=== PATIENT | male | born 1950 | race Caucasian/White ===

== ENCOUNTER → 2018-10-28 | Outpatient (CLI) | payer MEDICARE | END | disposition home or self-care (01) | LOC: LABPAT 13:27 | PROVIDERS: ATTEND Orthopaedic Surgery | DX: Z01.812 Encounter for preprocedural laboratory examination (principal) | CPT/HCPCS: 87070 ==

== ENCOUNTER → 2018-11-12 | Outpatient (CLI) | payer MEDICARE ==
[2018-11-12 08:21] LABS: HCT 41.6 % (39.0-53.0); HGB 13.4 gm/dL (13.0-17.5); MCH 31.4 pg (25.0-35.0); MCHC 32.1 g/dL (31.0-37.0); MCV 97.7 fL (80.0-100.0); Mean Platelet Volume 8.9; Platelet Count 162 k/uL (150-450); RBC 4.26 m/uL (4.30-5.90); RDW 13.4 % (11.5-15.5); WBC 5.1 k/uL (3.8-10.6)
[2018-11-12 08:23] LABS: Partial Thromboplastin Time 23.5 sec (22.0-30.0); Prothrombin Time 10.8 sec (9.0-12.0)
[2018-11-12 08:24] LABS: Appearance,Urine Clear (Clear); Bilirubin,Urine Negative (Negative); Blood,Urine Negative (Negative); Color,Urine Yellow; Glucose,Urine (UA) Negative (Negative); Ketones,Urine Negative (Negative); Leukocyte Esterase,Urine Negative (Negative); Nitrite,Urine Negative (Negative); PH, Urine 5.5 (5.0-8.0); Protein,Urine Negative (Negative); Specific Gravity,Urine 1.015 (1.001-1.035); Urobilinogen,Urine <2.0 mg/dL (<2.0)
[2018-11-12 08:25] LABS: ALT 42 U/L (21-72); AST 36 U/L (17-59); Albumin 4.3 g/dL (3.5-5.0); Alkaline Phosphatase 44 U/L (38-126); Anion Gap 7 mmol/L; Blood Urea Nitrogen 20 mg/dL (9-20); Calcium 9.6 mg/dL (8.4-10.2); Carbon Dioxide 29 mmol/L (22-30); Chloride 104 mmol/L (98-107); Glucose 106 mg/dL (74-99); Sodium 140 mmol/L (137-145); Total Bilirubin 0.8 mg/dL (0.2-1.3); Total Protein 7.1 g/dL (6.3-8.2)
== END | disposition home or self-care (01) ==
LOC: LABPAT 07:35
PROVIDERS: ATTEND Orthopaedic Surgery
DX: Z01.818 Encounter for other preprocedural examination (principal); Z01.812 Encounter for preprocedural laboratory examination; Z79.01 Long term (current) use of anticoagulants
CPT/HCPCS: 36415; 80053; 81003; 85027; 85610; 85730; 93005

== ENCOUNTER 2018-11-26 08:00 | Inpatient (IN) | payer MEDICARE ==
[~2018-11-26 08:00] MED LIST: ACETAMINOPHEN TAB 500 MG TAB PO ONE; LIDOCAINE 1% 20 ML VIAL (10MG/ML) FOR IV START INTRADERMA PRN; MELOXICAM 7.5 MG TAB PO ONE; MIDAZOLAM (PF) 2 MG/2 ML VIAL IV PRN; TRANEXAMIC ACID 1,000 MG in SODIUM CHLORIDE 0.9% 50 ML IVPB ONE; ceFAZolin IN SWFI 2 GM/20 ML SYRINGE IVP ONE; fentaNYL (PF) 50 MCG/ML 2 ML AMP IV PRN; fentaNYL (PF) 50 MCG/ML 20 ML VIAL IVP PRN
[2018-11-26] MEDS ORDERED: ONDANSETRON 4 MG/2 ML VIAL IVP ONE (12:27)
[2018-11-26] MEDS ORDERED: DEXAMETHASONE SOD PHOS (MDV) 100 MG/10 ML VIAL IV ONE (12:28)
[2018-11-26] MEDS: LACTATED RINGERS 1,000 ML IV SCH ×2 (12:36→21:40)
[2018-11-26] MEDS ORDERED: fentaNYL (PF) 50 MCG/ML 2 ML AMP IVP ONE ×2 (12:53→12:58)
[2018-11-26] MEDS ORDERED: MIDAZOLAM 2 MG/2 ML VIAL IVP ONE (12:58)
[2018-11-26] MEDS ORDERED: ROPIVACAINE 1,100 MG, SODIUM CHLORIDE 0.9% 500 ML 330 ML MISCELLANE PRN ×2 (13:15)
--- NOTE | 2018-11-26 13:15 | P.ONQ ---
Anesthesiology Proc Note - PNB - Peripheral Nerve Block Performed Right Adductor Canal Infusion Time Out Performed: Yes (1250) Procedure Start Time: 12:51 Procedure Stop Time: 13:06 Indication: Acute Post-Operative Pain, Requested by physician (Angus) Sedation Type: Sedate with meaningful contact maintained Preparation: Sterile Dressing Position: Supine Catheter: Indwelling Needle Types: On-Q Needle Size: 100mm (4") Needle Gauge: 20 Technique: Ultrasound Injectate: 0.5% Ropivacaine (see comment for volume) (30 mls) Blood Aspirated: No Pain Paresthesia on Injection Noted: No Resistance on Injection: Normal Events: Uneventful and Well Tolerated
[2018-11-26] MEDS ORDERED: NALOXONE 0.4 MG/ML 1 ML VIAL IV PRN (13:17)
[2018-11-26] MEDS ORDERED: BISACODYL 10 MG SUPP RECTAL PRN (13:17)
[2018-11-26] MEDS ORDERED: DIAZEPAM 5 MG TAB PO PRN (13:17)
[2018-11-26] MEDS ORDERED: MAGNESIUM HYDROXIDE 2,400 MG/10 ML CUP PO PRN (13:17)
[2018-11-26] MEDS ORDERED: HYDROmorphone 0.5 MG/0.5 ML SYRINGE IVP PRN ×3 (13:17)
[2018-11-26] MEDS ORDERED: ONDANSETRON 4 MG/2 ML VIAL IVP PRN (13:17)
[2018-11-26] MEDS ORDERED: hydrOXYzine PAMOATE 25 MG CAP PO PRN (13:17)
[2018-11-26] MEDS ORDERED: NA PHOS,M-B/NA PHOS,DI-BA 133 ML ENEMA RECTAL PRN (13:17)
[2018-11-26] MEDS ORDERED: HYDROcodone/APAP 5-325MG 1 EACH TAB PO PRN (13:17)
[2018-11-26] MEDS ORDERED: SODIUM CHLORIDE 0.9% 100 ML BAG ONE (13:47)
[2018-11-26] MEDS ORDERED: fentaNYL (PF) 50 MCG/ML 2 ML AMP ONE (13:47)
[2018-11-26] MEDS ORDERED: ePHEDrine SULFATE/0.9% NACL/PF 50 MG/5 ML SYRINGE IV ONE (13:47)
[2018-11-26] MEDS ORDERED: MIDAZOLAM 2 MG/2 ML VIAL ONE (13:47)
[2018-11-26] MEDS ORDERED: PROPOFOL 10 MG/ML 20 ML VIAL IV ONE (13:47)
[2018-11-26] MEDS ORDERED: TRANEXAMIC ACID 1,000 MG/10 ML VIAL ONE (13:47)
[2018-11-26] MEDS ORDERED: ceFAZolin 3,000 MG in SODIUM CHLORIDE 0.9% IRRIGATIO 3,000 ML IRRIGATION ONE (14:24)
[2018-11-26] MEDS ORDERED: LACTATED RINGERS 1,000 ML IV ONE (14:27)
[2018-11-26] MEDS: ROPIVACAINE 246.25 MG, EPINEPHrine 0.5 MG, KETOROLAC 30 MG, cloNIDine HCL/PF 80 MCG, WA... MISCELLANE ONE ×10 (14:29→14:50)
--- NOTE | 2018-11-26 15:17 | P.OP ---
Date of Procedure: 11/26/18 Preoperative Diagnosis: Severe osteoarthritis right knee Postoperative Diagnosis: Severe osteoarthritis right knee Procedure(s) Performed: Right total knee arthroplasty Implants: Alexis [employer] Nephew Journey II CR Oxinium cruciate retaining femoral component size 7, right [employer] Journey right nonporous tibial baseplate size 6 Alex[employer] Journey II, XLPE CR articular insert, size 10 mm, Size 5-6 right [employer] Journey BCS resurfacing oval patellar component, 32 mm All components were cemented using Palacos R bone cement.. The articulation is Oxinium on polyethylene. Anesthesia: spinal Surgeon: Prateek Greco [employer] Traffic Control Supervisor #1: Janette Decker Estimated Blood Loss (ml): 25 Pathology: other (Bone and cartilage) Condition: stable Disposition: PACU Indications for Procedure: After failure of conservative treatment we discussed the surgical and nonsurgical treatment options at length. Patient wishes to proceed with a total knee arthroplasty. Complications specific to this procedure were discussed at length, including but not limited to infection, bleeding, stiffness , and nerve injury. Patient is aware of all these complications and informed consent was obtained Operative Findings: The operative findings are consistent with severe osteoarthritis of the right knee Description of Procedure: Patient was seen in the preoperative area consent was reviewed and operative site was marked with a skin marker. An adductor canal pain catheter was placed by anesthesia in the preoperative area. Patient was then brought to the operating room and given preoperative antibiotics intravenously. A spinal anesthetic was administered by the anesthesia department. A tourniquet was placed on the upper thigh and the lower extremity was prepped and draped in usual sterile fashion. A gram of transexamic acid was given. A universal timeout was then performed which confirmed the patient's name, surgical site, ALLERGIES, and consent. The lower extremity was then exsanguinated and tourniquet was inflated to 250 mmHg. A standard and anterior midline approach to the knee was performed. The skin and subcutaneous tissue was dissected down to the patellar tendon. A medial parapatellar arthrotomy was then performed. The knee was then extended, the patellar was everted, and the knee was again flexed. Anterior horns of both menisci were excised, and a release was performed to the posterior medial aspect of the knee. On gross visual inspection, there was complete loss of articular cartilage in the medial and patellofemoral joint spaces. There was also significant cartilage damage in the lateral compartment. There were multiple periarticular osteophytes which were then removed with a Ronguer. The femoral canal was then opened with the appropriate drill, and the intramedullary femoral cutting guide was then placed and set for 5 of valgus. The distal femoral cutting block was then pinned in place, and the distal femur was then cut. The cutting block was then removed and the cut was checked for flatness. Next, the sizing guide was then placed and set for 3 external rotation based off of the epicondylar axis and Whitesides line. After the femur was sized, the appropriate 4-in-1 cutting block was then pinned in place. The anterior condyles were cut without notching. The posterior and chamfer cuts were performed while protecting the collateral ligaments. The cutting block was then removed, and the femoral canal was plugged with autologous bone. Attention was then directed to the tibia. The remaining ACL was removed with a Ronguer, and the tibia was then gently subluxed forward with a large bent knee retractor. Any remaining menisci was excised. The posterior lateral corner was cauterized in order to cauterize the lateral geniculate artery. The extra medullary tibial cutting guide was then placed, set for the appropriate rotation , slope, and depth of resection. The proximal tibia cutting guide was then pinned in place. Proximal tibia was then cut and sized. Next trials were then placed with the appropriate-sized insert. The knee was able to fully extend and flex to 130 and was stable throughout all range of motion. The knee was then extended, patella everted. Patella was then measured, and then using an osteotomy guide, the patella was cut at the appropriate level. The patella was then measured and drilled and the patella trial was then placed. The knee was then taken through range of motion with the patella trial and the patella tracked normally. The knee was then extended patella trial was then removed and the patella was everted. Knee was then flexed and lug holes were drilled through the femoral trial and the femoral trial was then removed. The tibial was then exposed, and the tibial broach guide was then pinned in place after it was set for the appropriate rotation to allow for the most coverage without overhang. The tibia was then reamed and broached. The cut surfaces of bone were then irrigated with pulsatile lavage. The posterior structures were injected with the ropivacaine solution. The knee was also irrigated with Irrisept solution. The components were then opened, the cement was mixed, and the components were then cemented in place. The cement was allowed to harden with the knee in full extension. While the cement was hardening, the remaining soft tissues were then injected with a ropivacaine solution, which consisted of 246.25 mg of ropivacaine, 0.5 mg of epinephrine, 30 mg of Toradol, 80 g of clonidine, and 48.45 mL of sterile water, for a total of 100 mL of fluid injected. After the cemented hardened. The tourniquet was released, and hemostasis was obtained. A second gram of transexamic acid was given. The knee was again irrigated. The knee was again taken through range of motion and found to be stable throughout all range of motion of 0-130 , and the patella tracked normally. The fascia was then closed with #2 strata fix suture. The subcutaneous tissue was closed with 3-0 Vicryl and 3-0 strata fix. Dermabond glue was used for the skin and placed with the knee in flexion. The patient was placed in a sterile silver dressing. Patient was then transferred to recovery room in stable condition. The certified nursing assistant MAXINE Villalobos was required due the complexity surgery and the need for a skilled surgical forceps fabricator. She assisted in positioning, draping, retraction, and closure of the wound.
--- NOTE | 2018-11-26 16:02 | XR ---
EXAMINATION TYPE: XR knee limited RT DATE OF EXAM: 11/26/2018 CLINICAL HISTORY: Postoperative evaluation Two views of the right knee are submitted. Identified are changes of total knee arthroplasty with femoral and tibial components appearing well seated. Postsurgical soft tissue changes are noted. Alignment is anatomic.
[2018-11-26] MEDS ORDERED: SENNOSIDES-DOCUSATE SODIUM 1 EACH TAB PO SCH (21:00)
[2018-11-26] MEDS: ASPIRIN 325 MG TAB PO SCH (21:30)
[2018-11-26] MEDS: HYDROcodone/APAP 5-325MG 1 EACH TAB PO PRN (21:30)
[2018-11-26] MEDS: ceFAZolin IN SWFI 2 GM/20 ML SYRINGE IVP SCH (21:32)
[2018-11-26] MEDS: SODIUM CHLORIDE 0.9% 1,000 ML IV SCH (21:40)
[2018-11-27 00:21] VITALS: TEMP 97.7
[2018-11-27 04:52] VITALS: BMI 28.8
[2018-11-27] MEDS: SODIUM CHLORIDE 0.9% 1,000 ML IV SCH (05:02)
[2018-11-27] MEDS: HYDROcodone/APAP 5-325MG 1 EACH TAB PO PRN (05:46)
[2018-11-27] MEDS: ceFAZolin IN SWFI 2 GM/20 ML SYRINGE IVP SCH (05:47)
--- NOTE | 2018-11-27 07:15 | P.PN ---
Progress Note - Text Progress Note Date: 11/27/18 Postoperative day # 1 status post right total knee arthroplasty, under spinal anesthesia, and adductor canal catheter placed for postoperative analgesia, currently at ropivacaine 0.2% 8 mL per hour and continuous infusion, visual analogue scale is 3-4 /10, patient using oral pain medication for breakthrough pain. Assessment and plan= Acute postoperative pain, adductor canal catheter for pain control, pain is well controlled we'll continue the same management.
[2018-11-27 07:42] VITALS: BP 131/82; PULSE 74; RESP 14
[2018-11-27 07:47] LABS: Basophils % (A) 0 %; Eosinophils # (A) 0.1 k/uL (0-0.7); Eosinophils % (A) 1 %; HCT 36.7 % (39.0-53.0); HGB 11.7 gm/dL (13.0-17.5); Lymphocytes # (A) 0.8 k/uL (1.0-4.8); Lymphocytes % (A) 8 %; MCH 31.2 pg (25.0-35.0); MCHC 31.9 g/dL (31.0-37.0); MCV 97.6 fL (80.0-100.0); Mean Platelet Volume 9.2; Monocytes # (A) 0.6 k/uL (0-1.0); Monocytes % (A) 6 %; Neutrophils # (A) 8.5 k/uL (1.3-7.7); Neutrophils % (A) 84 %; Platelet Count 150 k/uL (150-450); RBC 3.75 m/uL (4.30-5.90); RDW 13.3 % (11.5-15.5); WBC 10.1 k/uL (3.8-10.6)
[2018-11-27] MEDS ORDERED: MELOXICAM 7.5 MG TAB PO SCH (09:00)
--- NOTE | 2018-11-27 09:28 | P.DS ---
Providers Date of admission: 11/26/18 11:48 Expected date of discharge: 11/27/18 Attending physician: Prateek Greco Consults: 11/26/18 13:17 Consult Physician Routine Consulting Provider: Michael Polk Consult Reason/Comments: medical management Do you want consulting provider notified?: Yes Primary care physician: Michael Polk - Discharge Diagnosis(es) (1) Osteoarthritis of right knee Current Visit: Yes Status: Acute (2) Status post total right knee replacement Current Visit: Yes Status: Acute Hospital Course: This is a 68-year-old male with known history of degenerative arthritis of the right knee. The patient presents for evaluation. After discussion and consideration patient elects to proceed with total knee arthroplasty. The patient is seen preoperatively by Dr. Greco and medically cleared for surgery by their primary care physician. Patient is admitted to [facility] on 11/26/2018 for total knee arthroplasty. The procedures performed without complication or sequelae. The patient is doing well postoperatively. Labs and vital signs are stable on day of discharge. On day of discharge patient's knee incision is healing well. There is minimal erythema. There is no drainage noted at this time. There is minimal soft tissue swelling to the knee. Patient has full foot and ankle motion without difficulty or pain. Neurovascular status to the right lower extremity is intact. Patient is discharged home in good condition. Please see med rec for accurate list of home medications. Plan - Discharge Summary Discharge Rx Participant: No New Discharge Prescriptions: New Aspirin 325 mg PO BID #60 tab HYDROcodone/APAP 5-325MG [[place] 5-325] 1 - 2 tab PO Q6HR PRN #56 tab PRN Reason: Pain Sennosides [Senokot] 1 tab PO BID #60 tablet No Action Timolol 0.5% Ophth Soln [Timoptic 0.5% Ophth Soln] 1 drop BOTH EYES BID Aspirin 325 mg PO DAILY Multivit-Min/FA/Lycopene/Lut [Centrum Silver Tablet] 1 tab PO DAILY Biotin 10,000 mcg PO DAILY Budesonide/Formoterol Fumarate [Symbicort 80-4.5 Mcg Inhaler] 1 puff INHALATION RT-DAILY PRN PRN Reason: Shortness Of Breath Calmitide 1 tab PO HS Cholecalciferol [Vitamin D3] 2,000 unit PO Q48H Meloxicam 15 mg PO DAILY Discharge Medication List Timolol 0.5% Ophth Soln [Timoptic 0.5% Ophth Soln] 1 drop BOTH EYES BID [History] Aspirin 325 mg PO DAILY 06/17/15 [History] Multivit-Min/FA/Lycopene/Lut [Centrum Silver Tablet] 1 tab PO DAILY 06/17/15 [ History] Biotin 10,000 mcg PO DAILY 11/21/18 [History] Budesonide/Formoterol Fumarate [Symbicort 80-4.5 Mcg Inhaler] 1 puff INHALATION RT-DAILY PRN 11/21/18 [History] Calmitide 1 tab PO HS 11/21/18 [History] Cholecalciferol [Vitamin D3] 2,000 unit PO Q48H 11/21/18 [History] Meloxicam 15 mg PO DAILY 11/21/18 [History] Aspirin 325 mg PO BID #60 tab 11/27/18 [Rx] HYDROcodone/APAP 5-325MG [[place] 5-325] 1 - 2 tab PO Q6HR PRN #56 tab 11/27/18 [ Rx] Sennosides [Senokot] 1 tab PO BID #60 tablet 11/27/18 [Rx] Follow up Appointment(s)/Referral(s): Prateek Greco DO [Doctor of Osteopathic Medicine] - 2 Weeks Activity/Diet/Wound Care/Special Instructions: Weightbearing as tolerated with a walker. CPM 5-6h daily. Leave dressing intact. May be removed by home care nurse in 10 days. May shower with dressing on. Please follow up with [facility] and call with any questions or concerns, . Discharge Disposition: HOME WITH HOME HEALTH SERVICES
[2018-11-27] MEDS: LACTATED RINGERS 1,000 ML IV SCH (09:43)
[2018-11-27] MEDS: ASPIRIN 325 MG TAB PO SCH (09:48)
--- NOTE | 2018-11-28 13:27 | P.CONS ---
History of Present Illness - Reason for Consult Consult date: 11/27/18 Medical management - History of Present Illness This is a 68-year-old male patient of Dr. Polk with a previous medical history significant for hypertension and hypertensive cardiovascular disease, history of mild intermittent asthma, osteoarthritis. Patient has been admitted under the care of Dr. Greco, status post right total knee arthroplasty. Patient does have Q pump in place for pain control. He has been placed on aspirin 325 mg twice daily for DVT prophylaxis. Patient has been up and ambulating with physical therapy regarding this morning and is anticipating discharge home today. Patient has had no postop complications and is cleared from medicine for discharge. Review of Systems All systems: negative Constitutional: Denies anorexia, Denies chills, Denies fatigue, Denies fever, Denies lethargy, Denies malaise, Denies poor appetite, Denies weakness, Denies weight loss Ears, nose, mouth and throat: Denies dysphagia, Denies hoarseness, Denies mouth pain, Denies vertigo Cardiovascular: Denies decreased exercise tolerance, Denies dyspnea on exertion , Denies edema, Denies leg edema, Denies lightheadedness, Denies orthopnea, Denies palpitations, Denies syncope Respiratory: Denies cough, Denies cough with sputum, Denies dyspnea, Denies excessive sputum, Denies hemoptysis, Denies home oxygen, Denies wheezing Gastrointestinal: Denies abdominal pain, Denies belching, Denies diarrhea, Denies loss of appetite, Denies melena, Denies vomiting Genitourinary: Denies dysuria, Denies urinary frequency Musculoskeletal: Denies frequent falls, Denies gait dysfunction, Denies muscle weakness Integumentary: Reports wounds, Denies pruritus, Denies rash Neurological: Denies aphasia, Denies balance difficulties, Denies change in mentation, Denies change in speech, Denies confusion, Denies gait dysfunction, Denies head injury, Denies headaches, Denies seizures, Denies vertigo Psychiatric: Denies anxiety, Denies anxiety attacks, Denies depression Endocrine: Denies excessive thirst, Denies fatigue, Denies heat intolerance, Denies palpitations, Denies weight change Past Medical History Past Medical History: Asthma, Eye Disorder, GERD/Reflux, Osteoarthritis (OA) Additional Past Medical History / Comment(s): GLAUCOMA, hx migraine from head injury yrs ago, History of Any Multi-Drug Resistant Organisms: None Reported Past Surgical History: Adenoidectomy, Hernia Repair, Orthopedic Surgery, Tonsillectomy Additional Past Surgical History / Comment(s): rt knee arthroscopy and right knee arthroplasty, left hand surgery after injury, rt wrist surgery, left eye cataract Past Anesthesia/Blood Transfusion Reactions: No Reported Reaction Additional Past Anesthesia/Blood Transfusion Reaction / Comm: never had blood transfusion Past Psychological History: No Psychological Hx Reported Additional Psychological History / Comment(s): . Smoking Status: Former smoker Past Alcohol Use History: None Reported Additional Past Alcohol Use History / Comment(s): smoked only as teen Past Drug Use History: None Reported - Past Family History Mother Family Medical History: Cancer Additional Family Medical History / Comment(s): Mother at the age of 56 from leukemia. Father Family Medical History: Coronary Artery Disease (CAD) (Father at age of 81 from CAD), Myocardial Infarction (PA) Additional Family Medical History / Comment(s): Father at age of 81 from CAD. Brother(s) Family Medical History: No Reported History (Patient has 3 brothers no major medical problems) Additional Family Medical History / Comment(s): Patient has 3 brothers with no major medical problems. Sister(s) Family Medical History: No Reported History (Patient has 3 sisters no major medical problems.) Additional Family Medical History / Comment(s): Patient has 3 sisters with no major medical problems. Daughter(s) Family Medical History: No Reported History (One daughter no major medical problems.) Additional Family Medical History / Comment(s): Patient has one daughter with no major medical problems. Son(s) Family Medical History: No Reported History (2 sons no major medical problems) Additional Family Medical History / Comment(s): Patient has 2 sons with no major medical problems. Medications and Allergies Home Medications Medication Instructions Recorded Confirmed Type Timolol 0.5% Ophth Soln [Timoptic 1 drop BOTH EYES BID 06/14/15 11/26/18 History 0.5% Ophth Soln] Multivit-Min/FA/Lycopene/Lut 1 tab PO DAILY 06/17/15 11/26/18 History [Centrum Silver Tablet] Biotin 10,000 mcg PO DAILY 11/21/18 11/26/18 History Budesonide/Formoterol Fumarate 1 puff INHALATION RT-DAILY PRN 11/21/18 11/26/18 History [Symbicort 80-4.5 Mcg Inhaler] Calmitide 1 tab PO HS 11/21/18 11/26/18 History Cholecalciferol [Vitamin D3] 2,000 unit PO Q48H 11/21/18 11/26/18 History Meloxicam 15 mg PO DAILY 11/21/18 11/26/18 History Aspirin 325 mg PO BID #60 tab 11/27/18 Rx HYDROcodone/APAP 5-325MG [[place] 1 - 2 tab PO Q6HR PRN #56 tab 11/27/18 Rx 5-325] Sennosides [Senokot] 1 tab PO BID #60 tablet 11/27/18 Rx Allergies Allergy/AdvReac Type Severity Reaction Status Date / Time Penicillins Allergy Itching Verified 11/26/18 15:30 sawdust Allergy Unknown Uncoded 11/26/18 12:15 Physical Exam Vitals: Vital Signs Temp Pulse Resp BP BP Pulse Ox 11/27/18 07:24 97.7 F 74 14 131/82 96 11/27/18 00:14 97.7 F 96 15 121/71 96 11/26/18 21:47 15 11/26/18 18:57 88 16 154/89 97 11/26/18 17:45 74 18 145/95 98 11/26/18 17:30 79 16 139/88 96 11/26/18 17:00 68 18 136/89 95 11/26/18 16:45 68 18 135/84 95 11/26/18 16:30 79 18 128/81 96 11/26/18 16:15 70 18 130/75 97 11/26/18 16:00 68 16 127/75 97 11/26/18 15:45 65 16 138/81 100 11/26/18 15:36 97.6 F 50 L 12 138/79 100 11/26/18 13:23 69 16 139/88 100 11/26/18 12:26 97.5 F L 74 16 171/77 95 Intake and Output 11/26/18 11/27/18 11/27/18 22:59 06:59 14:59 Intake Total 1390 Output Total 125 100 Balance 1265 -100 Intake: IV 100 Intake, IV Titration 210 Amount Sodium Chloride 0.9% 1, 210 000 ml @ 70 mls/hr IV . [id number] [facility] Rx#:[id number] Oral 1080 Output: Urine 100 100 Estimated Blood Loss 25 Other: Voiding Method Toilet Urinal # Voids 3 General appearance: average body habitus, no distress - EENT Eyes: Reports EOMI, Reports PERRLA, Reports normal apperance, Denies ptosis, Denies scleral icterus ENT: Reports hearing grossly normal, Reports NA/AT, Reports normal oropharynx, Denies thrush Ears: bilateral: normal, negative: bulging, bullous, dull - Neck Neck: Reports normal ROM, Denies lymphadenopathy, Denies rigidity, Denies stridor, Denies thyromegaly Carotids: bilateral: upstroke normal, negative: upstroke delayed, upstroke diminished Thyroid: bilateral: normal size - Respiratory Respiratory: bilateral: diminished, negative: dullness, rales, rhonchi, wheezing , prolonged expiration, prolonged inspiration - Cardiovascular Heart sounds: normal: S1, S2 Abnormal Heart Sounds: Reports S3 Gallop, Denies systolic murmur, Denies diastolic murmur, Denies rub, Denies S4 Gallop, Denies click - Gastrointestinal General gastrointestinal: no hepatomegaly, Reports normal bowel sounds, no splenomegaly, no tenderness - Integumentary Integumentary: Reports normal, Reports normal turgor, Denies pale, Denies rash, Denies ulcer - Neurologic Neurologic: CNII-XII intact - Musculoskeletal Musculoskeletal: Reports gait normal, no weakness. Small dressing in place of the right knee with no breakthrough bleeding or drainage. Dorsalis pedis plus 2 bilaterally. - Psychiatric Psychiatric: Reports A&O x's 3, Reports appropriate affect, Reports intact judgment & insight Results CBC & Chem 7: 11/27/18 07:03 Labs: Abnormal Lab Results - Last 24 Hours (Table) 11/27/18 Range/Units 07:03 RBC 3.75 L (4.30-5.90) m/uL Hgb 11.7 L (13.0-17.5) gm/dL Hct 36.7 L (39.0-53.0) % Neutrophils # 8.5 H (1.3-7.7) k/uL Lymphocytes # 0.8 L (1.0-4.8) k/uL Assessment and Plan Plan: 1. Osteoarthritis status post right total knee arthroplasty with Dr. Greco. Continue PT, OT, pain control, aspirin for DVT prophylaxis, incentive spirometry to reduce incidence of atelectasis and hospital-acquired pneumonia. 2. Mild intermittent asthma. Continue Symbicort. 3. Glaucoma. Continue eyedrops. 4. History of hypertensive cardiovascular disease. Not currently on medication. Discharge plan: Home. Impression and plan of care have been directed as dictated by the signing physician. Sayra Patel nurse practitioner acting as scribe for signing physician.
== END 2018-11-27 13:09 | disposition home health service (06) | DRG 470 ==
LOC: 2ORMAIN 11:48 → 4SSUR 17:38
PROVIDERS: ADMIT Orthopaedic Surgery; ATTEND Orthopaedic Surgery
PROC: 0SRC069 Replacement of Right Knee Joint with Oxidized Zirconium on Polyethylene Synthetic Substitute, Cemented, Open Approach (ICD-10-PCS; principal; 2018-11-26 13:45)
DX: M17.11 Unilateral primary osteoarthritis, right knee (principal); H40.9 Unspecified glaucoma; E78.5 Hyperlipidemia, unspecified; N40.0 Benign prostatic hyperplasia without lower urinary tract symptoms; Z79.82 Long term (current) use of aspirin; Z79.899 Other long term (current) drug therapy; Z88.0 Allergy status to penicillin; Z83.3 Family history of diabetes mellitus; Z82.49 Family history of ischemic heart disease and other diseases of the circulatory system
CPT/HCPCS: 85025

== ENCOUNTER → 2020-08-27 | Outpatient (CLI) | payer MEDICARE ==
[2020-08-27 09:15] LABS: African American GFR (CKD) >90 (>60 ml/min/1.73 sqM); Blood Urea Nitrogen 21 mg/dL (9-20); Non-African American GFR(CKD) 89 (>60 ml/min/1.73 sqM)
--- NOTE | 2020-08-27 17:53 | XR ---
EXAMINATION TYPE: XR chest 2V DATE OF EXAM: 08/27/2020 CLINICAL HISTORY: C61 Prostate Ca. TECHNIQUE: Frontal and lateral view of the chest. COMPARISON: 07/27/2015 chest radiograph FINDINGS: The cardiomediastinal silhouette is within normal limits for size. Pulmonary vasculature i s normal. There is no focal air space opacity, pleural effusion, or pneumothorax seen. Degenerative c hanges of the spine. IMPRESSION: No acute cardiopulmonary process.
--- NOTE | 2020-08-27 18:01 | NM ---
EXAMINATION TYPE: NM bone scan whole body DATE OF EXAM: 08/27/2020 COMPARISON: NONE HISTORY: Prostate cancer Delayed whole-body scanning was performed following the injection of 22.8 mCi Tc 99m MDP. Images acq uired 3 hours post injection. FINDINGS: No focal uptake suspicious for osseous metastatic disease. Degenerative symmetric uptake of the bilat eral shoulders, sternoclavicular, elbows, wrists and hands, knees. IMPRESSION: No focal activity suspicious for osseous metastatic disease.
--- NOTE | 2020-08-30 00:30 | CT ---
EXAMINATION TYPE: CT abdomen pelvis w con DATE OF EXAM: 08/27/2020 COMPARISON: Plain CT chest and pelvis 07/28/2015. Nuclear medicine bone scan 08/27/2020. HISTORY: Staging of Prostate CT DLP: 1116.9 mGycm Automated exposure control for dose reduction was used. TECHNIQUE: Helical acquisition of images was performed from the lung bases through the pelvis. CONTRAST: Performed with Oral Contrast and with IV Contrast, patient injected with 100 mL of Isovue 300. FINDINGS: LUNG BASES: Normal. LIVER: 1.0 cm hepatic cyst at the dome (3:7) unchanged versus 2015 CT. Additional too small to charac terize hypodense lesion (3:7), and likely represents hepatic cyst. Hypodense lesion of segment 7 (3:1 1) is too small to characterize. BILIARY SYSTEM: Normal. PANCREAS: Normal. SPLEEN: Normal. ADRENALS: Normal. KIDNEYS: Bilateral peripelvic cysts and too small to characterize hypodense lesions. No hydronephrosi s. BOWEL: No obstruction or thickening. Mild colonic. No acute diverticulitis. PERITONEUM: No pneumoperitoneum. No free fluid. LYMPH NODES: No lymphadenopathy. PELVIS: Normal urinary bladder. TURP changes of the prostate. VASCULATURE: No abdominal aortic aneurysm. MUSCULOSKELETAL: No aggressive osseous destructive lesions. IMPRESSION: 1. No evidence of metastatic prostate cancer of the abdomen or pelvis. 2. Too small to characterize hypodense lesion of the liver.
== END | disposition home or self-care (01) ==
LOC: RADNMMAIN 08:04
PROVIDERS: ATTEND Urology
DX: C61 Malignant neoplasm of prostate (principal)
CPT/HCPCS: 82565; 84520; 71046; 74177; 36415; 78306; A9503; Q9967 ×2

== ENCOUNTER → 2020-09-03 | Outpatient (CLI) | payer MEDICARE | END | disposition home or self-care (01) | LOC: LABWHC1 09:51 | PROVIDERS: ATTEND Radiology Radiation Oncology | DX: C61 Malignant neoplasm of prostate (principal) | CPT/HCPCS: 36415; 84153 ==

== ENCOUNTER 2020-09-30 09:08 | Day surgery (SDC) | payer MEDICARE ==
[2020-09-28 15:06] VITALS: BMI 27.6
--- NOTE | 2020-09-29 12:04 | P.GSHP ---
History of Present Illness H&P Date: 09/29/20 70 yo male who recently underwent a turp for obstructive voiding symptoms. The path identified 45% amos 8. His pre op psas were low and the post op psa was 1.8. His metastatic workup was negative. HE has chosen ebrt with lhrh therapy. He comes for a spaceoar pre treatment. the risks and complications have been discussed. - Constitutional Constitutional: Denies chills, Denies fever - EENT Eyes: denies blurred vision, denies pain Ears, nose, mouth and throat: Denies headache, Denies sore throat - Cardiovascular Cardiovascular: Denies chest pain, Denies shortness of breath - Respiratory Respiratory: Denies cough, Denies 7 - Gastrointestinal Gastrointestinal: Denies abdominal pain, Denies diarrhea, Denies nausea, Denies vomiting - Genitourinary (Female) Genitourinary: Denies dysuria, Denies hematuria - Genitourinary (Male) Genitourinary: Denies dysuria, Denies hematuria - Musculoskeletal Musculoskeletal: Denies myalgias - Integumentary Integumentary: Denies pruritus, Denies rash - Neurological Neurological: Denies numbness, Denies weakness - Psychiatric Psychiatric: Denies anxiety, Denies depression - Endocrine Endocrine: Denies fatigue, Denies weight change Past Medical History Past Medical History: Asthma, Cancer, Eye Disorder Additional Past Medical History / Comment(s): prostate CA dx Aug 2020,GLAUCOMA, and previous history of shoulder dislocation, bronchial asthma History of Any Multi-Drug Resistant Organisms: None Reported Past Surgical History: Adenoidectomy, Hernia Repair, Joint Replacement, Orthopedic Surgery, Tonsillectomy Additional Past Surgical History / Comment(s): rt knee arthroscopy and right knee arthroplasty, left hand surgery after injury, rt wrist surgery, left eye cataract Past Anesthesia/Blood Transfusion Reactions: No Reported Reaction Additional Past Anesthesia/Blood Transfusion Reaction / Comment(s): never had blood transfusion Smoking Status: Former smoker - Past Family History Mother Family Medical History: Cancer Additional Family Medical History / Comment(s): Mother at the age of 56 from leukemia. Father Family Medical History: Coronary Artery Disease (CAD) (Father at age of 81 from CAD), Myocardial Infarction ([place]) Additional Family Medical History / Comment(s): Father at age of 81 from CAD. Brother(s) Family Medical History: No Reported History (Patient has 3 brothers no major medical problems) Additional Family Medical History / Comment(s): Patient has 3 brothers with no major medical problems. Sister(s) Family Medical History: No Reported History (Patient has 3 sisters no major medical problems.) Additional Family Medical History / Comment(s): Patient has 3 sisters with no major medical problems. Daughter(s) Family Medical History: No Reported History (One daughter no major medical problems.) Additional Family Medical History / Comment(s): Patient has one daughter with no major medical problems. Son(s) Family Medical History: No Reported History (2 sons no major medical problems) Additional Family Medical History / Comment(s): Patient has 2 sons with no major medical problems. Medications and Allergies Home Medications Medication Instructions Recorded Confirmed Type Timolol 0.5% Ophth Soln [Timoptic 1 drop BOTH EYES BID 06/14/15 09/28/20 History 0.5% Ophth Soln] Biotin 5,000 mcg PO DAILY 11/21/18 09/28/20 History Cholecalciferol [Vitamin D3] 2,000 unit PO Q48H 11/21/18 09/28/20 History Alg Medication 1 tab PO DAILY 09/28/20 09/28/20 History Aspirin 325 mg PO DAILY 09/28/20 09/28/20 History Multivit-Min/FA/Lycopen/Lutein 1 each PO DAILY 09/28/20 09/28/20 History [Centrum Silver Men Tablet] Allergies Allergy/AdvReac Type Severity Reaction Status Date / Time Penicillins Allergy Itching Verified 09/28/20 14:34 sawdust Allergy Unknown Uncoded 09/28/20 14:34 Surgical - Exam - General well developed, well nourished, no distress - Eyes PERRL - ENT no hearing loss - Neck trachea midline - Respiratory normal expansion, normal respiratory effort - Cardiovascular Rhythm: regular - Abdomen Abdomen: soft, non tender - Genitourinary normal penis with no external lesions, testicles present - Integumentary no rash, no growths - Neurologic normal coordination, normal sensation - Musculoskeletal normal gait, normal posture - Psychiatric oriented to time, oriented to person, oriented to place, speech is normal, memory intact Assessment and Plan Assessment: Impression: Prostate ca Plan: Spaceoar gel placement for ebrt by Dr Page
[~2020-09-30 09:08] MED LIST changes: -ACETAMINOPHEN TAB 500 MG TAB PO ONE; +DEXAMETHASONE SOD PHOSPHATE 4 MG/ML 1 ML VIAL IV ONE; +HYDROmorphone 0.5 MG/0.5 ML SYRINGE IVP PRN; +LACTATED RINGERS 1,000 ML IV SCH; +LIDOCAINE 1% (10MG/ML) FOR IV START INTRADERMA PRN; -LIDOCAINE 1% 20 ML VIAL (10MG/ML) FOR IV START INTRADERMA PRN; -MELOXICAM 7.5 MG TAB PO ONE; -MIDAZOLAM (PF) 2 MG/2 ML VIAL IV PRN; +ONDANSETRON 4 MG/2 ML VIAL IVP ONE; -TRANEXAMIC ACID 1,000 MG in SODIUM CHLORIDE 0.9% 50 ML IVPB ONE; -ceFAZolin IN SWFI 2 GM/20 ML SYRINGE IVP ONE; -fentaNYL (PF) 50 MCG/ML 2 ML AMP IV PRN; -fentaNYL (PF) 50 MCG/ML 20 ML VIAL IVP PRN
[2020-09-30 10:18] VITALS: RESP 16; TEMP 97.1
[2020-09-30] MEDS ORDERED: LIDOCAINE 2% INJ 20 MG/ML SQ ONE ×3 (11:38→12:09)
[2020-09-30] MEDS ORDERED: GLYCOPYRROLATE 0.2 MG/ML 2 ML VIAL ONE (11:47)
[2020-09-30] MEDS ORDERED: LIDOCAINE 1% INJ 10MG/ML (20 ML MDV) ONE (11:47)
[2020-09-30] MEDS ORDERED: PROPOFOL 10 MG/ML 20 ML VIAL IV ONE (11:47)
[2020-09-30] MEDS ORDERED: fentaNYL (PF) 50 MCG/ML 2 ML AMP ONE (11:47)
[2020-09-30] MEDS ORDERED: KETAMINE 10 MG/ML 20 ML VIAL ONE (11:47)
[2020-09-30] MEDS ORDERED: MIDAZOLAM 2 MG/2 ML VIAL ONE (11:47)
--- NOTE | 2020-09-30 12:13 | P.OP ---
Date of Procedure: 09/30/20 Preoperative Diagnosis: Adenocarcinoma of the prostate Postoperative Diagnosis: Same Procedure(s) Performed: SpaceOAR Implant Anesthesia: MAC Surgeon: Mehul Page Estimated Blood Loss (ml): 5 IV fluids (ml): 300 Pathology: none sent Condition: stable Disposition: PACU Indications for Procedure: 70 yo male who recently underwent a turp for obstructive voiding symptoms. The path identified 45% amos 8. His pre op psas were low and the post op psa was 1.8. His metastatic workup was negative. HE has chosen ebrt with lhrh therapy. He comes for a spaceoar pre treatment. the risks and complications have been discussed. Operative Findings: 8 mm separation created between prostate and rectum. Description of Procedure: The patient was taken to the operating room and placed in the dorsolithotomy position, with his legs supported in Clayton stirrups. The external genitalia was prepped and draped sterilely. The Bruel and Kjaer transrectal ultrasound probe was placed intrarectally. The prostate was imaged. The probe was then placed within the stabilizing stand. A spinal needle was advanced under ultrasonic guidance to the level of the urogenital diaphragm, and lidocaine was used to infiltrate the tissues as the needle was withdrawn. Next, the SpaceOAR needle was passed through the midline of the perineum, 1-2 cm anterior to the anal opening. The needle was slowly advanced under ultrasonic guidance until the needle tip was located within the fat plane between the prostate and rectum, at the level of the mid prostate gland. The needle was confirmed to be midline on the axial imaging. A small amount of normal saline was injected for hydrodissection. Next, the SpaceOAR components were mixed and loaded into the Y connector per protocol. The Y connector was then connected to the needle, and the components were injected slowly over a course of approximately 12 seconds. A total of 10 ml was injected. 8 mm distance was created between the prostate and rectum, as desired. It should be noted that at no point was there any concern of rectal perforation. The needle was withdrawn, as well as the transrectal ultrasound probe, and the procedure was terminated. The patient tolerated the procedure well and was taken to the recovery room in stable condition.
[2020-09-30 12:33] VITALS: BP 129/85; PULSE 90
== END 2020-09-30 13:03 | disposition home or self-care (01) ==
LOC: OR 09:08
PROVIDERS: ATTEND Urology
DX: C61 Malignant neoplasm of prostate (principal); J45.909 Unspecified asthma, uncomplicated; H40.9 Unspecified glaucoma; Z87.828 Personal history of other (healed) physical injury and trauma; Z90.89 Acquired absence of other organs; Z98.890 Other specified postprocedural states; Z87.19 Personal history of other diseases of the digestive system; Z96.651 Presence of right artificial knee joint; Z98.42 Cataract extraction status, left eye; Z87.891 Personal history of nicotine dependence; Z79.899 Other long term (current) drug therapy; Z79.82 Long term (current) use of aspirin; Z88.0 Allergy status to penicillin; Z91.09 Other allergy status, other than to drugs and biological substances; Z80.6 Family history of leukemia; Z82.49 Family history of ischemic heart disease and other diseases of the circulatory system
CPT/HCPCS: 55874; J2001 ×2; J2250; J1100; J2405; J0690; J3010; J2704

== ENCOUNTER 2021-05-12 15:37 | Emergency (ER) | payer MEDICARE ==
[2021-05-12 15:59] VITALS: TEMP 98.1
--- NOTE | 2021-05-12 16:41 | ED ---
Abdominal Pain HPI - General Chief Complaint: Abdominal Pain Stated Complaint: Abd Pain Time Seen by Provider: 05/12/21 16:17 Source: patient Mode of arrival: ambulatory Limitations: no limitations - History of Present Illness Initial Comments: Patient is a 71-year-old male with past medical history of prostate cancer who presents emergency Department with reported left lower quadrant abdominal pain. He states it has been present for the past week. He saw his primary care physician who placed him on Flagyl. States he's been taking it once daily h owever his pain has continued. He has not taken anything for pain. No nausea or vomiting. Denies any diarrhea or black or bloody stools. No change in his urination. No history of kidney stones. States her pain. No other alleviating, precipitating or modifying factors - Related Data Home Medications Medication Instructions Recorded Confirmed Timolol 0.5% Ophth Soln [Timoptic 1 drop BOTH EYES BID 06/14/15 09/30/20 0.5% Ophth Soln] Biotin 5,000 mcg PO DAILY 11/21/18 09/30/20 Cholecalciferol [Vitamin D3] 2,000 unit PO Q48H 11/21/18 09/30/20 Alg Medication 1 tab PO DAILY 09/28/20 09/30/20 Aspirin 325 mg PO DAILY 09/28/20 09/30/20 Multivit-Min/FA/Lycopen/Lutein 1 each PO DAILY 09/28/20 09/30/20 [Centrum Silver Men Tablet] Triprolidine/Pseudoephedrine 1 each PO DAILY PRN 09/29/20 09/30/20 [Aprodine Tablet] Previous Rx's Medication Instructions Recorded Ketorolac [Toradol] 10 mg PO Q8HR #15 tab 05/12/21 Allergies Allergy/AdvReac Type Severity Reaction Status Date / Time Penicillins Allergy Itching Verified 05/12/21 15:54 sawdust Allergy Unknown Uncoded 05/12/21 15:54 Review of Systems ROS Statement: Those systems with pertinent positive or pertinent negative responses have been documented in the HPI. ROS Other: All systems not noted in ROS Statement are negative. Past Medical History Past Medical History: Asthma, Cancer, Eye Disorder Additional Past Medical History / Comment(s): prostate CA dx Aug 2020,GLAUCOMA, and previous history of shoulder dislocation, bronchial asthma History of Any Multi-Drug Resistant Organisms: None Reported Past Surgical History: Adenoidectomy, Hernia Repair, Joint Replacement, Orthopedic Surgery, Tonsillectomy Additional Past Surgical History / Comment(s): rt knee arthroscopy and right knee arthroplasty, left hand surgery after injury, rt wrist surgery, left eye cataract Past Anesthesia/Blood Transfusion Reactions: No Reported Reaction Additional Past Anesthesia/Blood Transfusion Reaction / Comment(s): never had blood transfusion Past Psychological History: No Psychological Hx Reported Smoking Status: Former smoker - Past Family History Mother Family Medical History: Cancer Additional Family Medical History / Comment(s): Mother at the age of 56 from leukemia. Father Family Medical History: Coronary Artery Disease (CAD) (Father at age of 81 from CAD), Myocardial Infarction ([place]) Additional Family Medical History / Comment(s): Father at age of 81 from CAD. Brother(s) Family Medical History: No Reported History (Patient has 3 brothers no major medical problems) Additional Family Medical History / Comment(s): Patient has 3 brothers with no major medical problems. Sister(s) Family Medical History: No Reported History (Patient has 3 sisters no major medical problems.) Additional Family Medical History / Comment(s): Patient has 3 sisters with no major medical problems. Daughter(s) Family Medical History: No Reported History (One daughter no major medical problems.) Additional Family Medical History / Comment(s): Patient has one daughter with no major medical problems. Son(s) Family Medical History: No Reported History (2 sons no major medical problems) Additional Family Medical History / Comment(s): Patient has 2 sons with no major medical problems. General Exam Limitations: no limitations General appearance: alert, in no apparent distress Head exam: Present: atraumatic, normocephalic, normal inspection Eye exam: Present: normal appearance, PERRL, EOMI. Absent: scleral icterus, conjunctival injection, periorbital swelling ENT exam: Present: normal exam, mucous membranes moist Neck exam: Present: normal inspection. Absent: tenderness, meningismus, lymphadenopathy Respiratory exam: Present: normal lung sounds bilaterally. Absent: respiratory distress, wheezes, rales, rhonchi, stridor Cardiovascular Exam: Present: regular rate, normal rhythm, normal heart sounds. Absent: systolic murmur, diastolic murmur, rubs, gallop, clicks GI/Abdominal exam: Present: soft, tenderness (LLQ), normal bowel sounds. Absent: distended, guarding, rebound, rigid Extremities exam: Present: normal inspection, full ROM, normal capillary refill. Absent: tenderness, pedal edema, joint swelling, calf tenderness Back exam: Present: normal inspection Neurological exam: Present: alert, oriented X3, CN II-XII intact Psychiatric exam: Present: normal affect, normal mood Skin exam: Present: warm, dry, intact, normal color. Absent: rash Course Vital Signs 05/12/21 05/12/21 15:54 18:25 Temperature 98.1 F Pulse Rate 94 81 Respiratory 18 16 Rate Blood Pressure 143/84 151/84 O2 Sat by Pulse 98 99 Oximetry Medical Decision Making - Medical Decision Making Upon arrival patient is placed into room 26. History and physical exam is performed. IV is established the patient is given Toradol for pain control. Laboratory studies were conducted. Urinalysis demonstrates 31 cells with rare bacteria. CT demonstrates a 2 mm calcification within the bladder as expected position of the distal ureteral vesicular junction. I discussed results with the patient. He is pain-free at this time. We'll be discharged home with Carolyn dol for pain control. Increase fluid intake. Strain all urine. Follow up with the urologist. Return to the emergency room for new or worsening symptoms. Patient was discharged in stable condition - Lab Data Result diagrams: 05/12/21 16:55 05/12/21 16:55 Lab Results 05/12/21 05/12/21 05/12/21 Range/Units 16:55 16:55 16:55 WBC 6.8 (3.8-10.6) k/uL RBC 4.21 L (4.30-5.90) m/uL Hgb 13.6 (13.0-17.5) gm/dL Hct 41.1 (39.0-53.0) % MCV 97.6 (80.0-100.0) fL MCH 32.4 (25.0-35.0) pg MCHC 33.2 (31.0-37.0) g/dL RDW 12.2 (11.5-15.5) % Plt Count 139 L (150-450) k/uL MPV 10.2 Neutrophils % 71 % Lymphocytes % 17 % Monocytes % 6 % Eosinophils % 3 % Basophils % 0 % Neutrophils # 4.9 (1.3-7.7) k/uL Lymphocytes # 1.1 (1.0-4.8) k/uL Monocytes # 0.4 (0-1.0) k/uL Eosinophils # 0.2 (0-0.7) k/uL Basophils # 0.0 (0-0.2) k/uL PT 10.5 (9.0-12.0) sec INR 1.0 (<1.2) APTT 22.7 (22.0-30.0) sec Sodium (137-145) mmol/L Potassium (3.5-5.1) mmol/L Chloride (98-107) mmol/L Carbon Dioxide (22-30) mmol/L Anion Gap mmol/L BUN (9-20) mg/dL Creatinine (0.66-1.25) mg/dL Est GFR (CKD-EPI)AfAm (>60 ml/min/1.73 sqM) Est GFR (CKD-EPI)NonAf (>60 ml/min/1.73 sqM) Glucose (74-99) mg/dL Plasma Lactic Acid Eren (0.7-2.0) mmol/L Calcium (8.4-10.2) mg/dL Total Bilirubin (0.2-1.3) mg/dL AST (17-59) U/L ALT (4-49) U/L Alkaline Phosphatase (38-126) U/L Total Protein (6.3-8.2) g/dL Albumin (3.5-5.0) g/dL Lipase (23-300) U/L Urine Color Yellow Urine Appearance Cloudy (Clear) Urine pH 7.5 (5.0-8.0) Ur Specific [place] 1.021 (1.001-1.035) Urine Protein 1+ H (Negative) Urine Glucose (UA) Negative (Negative) Urine Ketones Negative (Negative) Urine Blood Trace H (Negative) Urine Nitrite Negative (Negative) Urine Bilirubin Negative (Negative) Urine Urobilinogen <2.0 (<2.0) mg/dL Ur Leukocyte Esterase Negative (Negative) Urine RBC 31 H (0-5) /hpf Urine WBC 3 (0-5) /hpf Ur Squamous Epith Cells <1 (0-4) /hpf Amorphous Sediment Rare H (None) /hpf Urine Bacteria Rare H (None) /hpf Urine Mucus Occasional H (None) /hpf 05/12/21 05/12/21 Range/Units 16:55 16:55 WBC (3.8-10.6) k/uL RBC (4.30-5.90) m/uL Hgb (13.0-17.5) gm/dL Hct (39.0-53.0) % MCV (80.0-100.0) fL MCH (25.0-35.0) pg MCHC (31.0-37.0) g/dL RDW (11.5-15.5) % Plt Count (150-450) k/uL MPV Neutrophils % % Lymphocytes % % Monocytes % % Eosinophils % % Basophils % % Neutrophils # (1.3-7.7) k/uL Lymphocytes # (1.0-4.8) k/uL Monocytes # (0-1.0) k/uL Eosinophils # (0-0.7) k/uL Basophils # (0-0.2) k/uL PT (9.0-12.0) sec INR (<1.2) APTT (22.0-30.0) sec Sodium 142 (137-145) mmol/L Potassium 4.6 (3.5-5.1) mmol/L Chloride 108 H (98-107) mmol/L Carbon Dioxide 26 (22-30) mmol/L Anion Gap 8 mmol/L BUN 23 H (9-20) mg/dL Creatinine 0.90 (0.66-1.25) mg/dL Est GFR (CKD-EPI)AfAm >90 (>60 ml/min/1.73 sqM) Est GFR (CKD-EPI)NonAf 85 (>60 ml/min/1.73 sqM) Glucose 117 H (74-99) mg/dL Plasma Lactic Acid Eren 1.2 (0.7-2.0) mmol/L Calcium 9.5 (8.4-10.2) mg/dL Total Bilirubin 0.3 (0.2-1.3) mg/dL AST 43 (17-59) U/L ALT 37 (4-49) U/L Alkaline Phosphatase 59 (38-126) U/L Total Protein 7.0 (6.3-8.2) g/dL Albumin 4.4 (3.5-5.0) g/dL Lipase 266 (23-300) U/L Urine Color Urine Appearance (Clear) Urine pH (5.0-8.0) Ur Specific [place] (1.001-1.035) Urine Protein (Negative) Urine Glucose (UA) (Negative) Urine Ketones (Negative) Urine Blood (Negative) Urine Nitrite (Negative) Urine Bilirubin (Negative) Urine Urobilinogen (<2.0) mg/dL Ur Leukocyte Esterase (Negative) Urine RBC (0-5) /hpf Urine WBC (0-5) /hpf Ur Squamous Epith Cells (0-4) /hpf Amorphous Sediment (None) /hpf Urine Bacteria (None) /hpf Urine Mucus (None) /hpf - EKG Data EKG Comments: EKG demonstrates a normal sinus rhythm with a ventricular rate of 90. ME interval 164. Dressing 6. QTC of 464. No acute ST segment elevations or depressions concerning for ischemic changes Disposition Clinical Impression: Abdominal pain, Ureteral stone Disposition: HOME SELF-CARE Condition: Stable Instructions (If sedation given, give patient instructions): Kidney Stones (ED) Additional Instructions: Strain all your urine. Increase fluid intake. Take the pain meds as directed. Return to the ED for any new or worsening symptom. Prescriptions: Ketorolac [Toradol] 10 mg PO Q8HR #15 tab Is patient prescribed a controlled substance at d/c from ED?: No Referrals: Connor Dhillon MD [Primary Care Provider] - 1-2 days Time of Disposition: 18:55
[2021-05-12] MEDS ORDERED: KETOROLAC 15 MG/ML 1 ML VIAL IVP STA (17:07)
[2021-05-12 17:09] LABS: Basophils % (A) 0 %; Eosinophils # (A) 0.2 k/uL (0-0.7); Eosinophils % (A) 3 %; HCT 41.1 % (39.0-53.0); HGB 13.6 gm/dL (13.0-17.5); Lymphocytes # (A) 1.1 k/uL (1.0-4.8); Lymphocytes % (A) 17 %; MCH 32.4 pg (25.0-35.0); MCHC 33.2 g/dL (31.0-37.0); MCV 97.6 fL (80.0-100.0); Mean Platelet Volume 10.2; Monocytes # (A) 0.4 k/uL (0-1.0); Monocytes % (A) 6 %; Neutrophils # (A) 4.9 k/uL (1.3-7.7); Neutrophils % (A) 71 %; Platelet Count 139 k/uL (150-450); RBC 4.21 m/uL (4.30-5.90); RDW 12.2 % (11.5-15.5); WBC 6.8 k/uL (3.8-10.6)
[2021-05-12 17:20] LABS: ALT 37 U/L (4-49); AST 43 U/L (17-59); African American GFR (CKD) >90 (>60 ml/min/1.73 sqM); Albumin 4.4 g/dL (3.5-5.0); Alkaline Phosphatase 59 U/L (38-126); Anion Gap 8 mmol/L; Blood Urea Nitrogen 23 mg/dL (9-20); Calcium 9.5 mg/dL (8.4-10.2); Carbon Dioxide 26 mmol/L (22-30); Chloride 108 mmol/L (98-107); Glucose 117 mg/dL (74-99); Lipase 266 U/L (23-300); Non-African American GFR(CKD) 85 (>60 ml/min/1.73 sqM); Potassium 4.6 mmol/L (3.5-5.1); Sodium 142 mmol/L (137-145); Total Bilirubin 0.3 mg/dL (0.2-1.3)
[2021-05-12 17:25] LABS: Amorphous Sediment,Urine Rare /hpf; Appearance,Urine Cloudy (Clear); Bacteria,Urine Rare /hpf; Bilirubin,Urine Negative (Negative); Blood,Urine Trace (Negative); Color,Urine Yellow; Glucose,Urine (UA) Negative (Negative); Ketones,Urine Negative (Negative); Leukocyte Esterase,Urine Negative (Negative); Mucus,Urine Occasional /hpf; Nitrite,Urine Negative (Negative); PH, Urine 7.5 (5.0-8.0); Protein,Urine 1+ (Negative); RBC,Urine 31 /hpf (0-5); Specific Gravity,Urine 1.021 (1.001-1.035); Squamous Epithelial Cell,Urine <1 /hpf (0-4); Urobilinogen,Urine <2.0 mg/dL (<2.0); WBC,Urine 3 /hpf (0-5)
[2021-05-12 17:32] LABS: Partial Thromboplastin Time 22.7 sec (22.0-30.0); Prothrombin Time 10.5 sec (9.0-12.0)
--- NOTE | 2021-05-12 18:17 | CT ---
EXAMINATION TYPE: CT abdomen pelvis w con DATE OF EXAM: 05/12/2021 COMPARISON: 08/27/2020 HISTORY: Left-sided abdominal pain TECHNIQUE: Helical acquisition of images was performed from the lung bases through the pelvis. Autom ated exposure control for dose reduction was used. CT DLP: 1173.2 mGycm IV CONTRAST: 100 mL Isovue-300 FINDINGS: LUNG BASES: No significant abnormality is appreciated. LIVER/GB: Previously seen subcentimeter cysts are unchanged. 411No significant abnormality is appreci ated. PANCREAS: No significant abnormality is seen. SPLEEN: No significant abnormality is seen. ADRENALS: No significant abnormality is seen. KIDNEYS: No hydronephrosis or hydroureter. The previously seen bilateral nonobstructing renal calcifi cations are redemonstrated. PERITONEAL CAVITY: No pneumoperitoneum or peritoneal fluid. RETROPERITONEAL ADENOPATHY: None visualized REPRODUCTIVE ORGANS: No significant abnormality is seen URINARY BLADDER: No significant abnormality is seen. PELVIC ADENOPATHY: None visualized. OSSEOUS STRUCTURES: No significant abnormality is seen. BOWEL: No significant abnormality is seen. OTHER: Widespread nonaneurysmal atherosclerotic changes are seen, with atherosclerotic intimal calcif ications throughout the visualized arterial anatomy, including the left and right coronary arteries. IMPRESSION: NO ACUTE CT PROCESS.
[2021-05-12 18:27] VITALS: BP 151/84; PULSE 81; RESP 16
== END 2021-05-12 19:06 | disposition home or self-care (01) ==
LOC: EC 15:37
DX: N20.1 Calculus of ureter (principal); J45.909 Unspecified asthma, uncomplicated; Z79.1 Long term (current) use of non-steroidal anti-inflammatories (NSAID); Z79.82 Long term (current) use of aspirin; Z79.899 Other long term (current) drug therapy; Z87.891 Personal history of nicotine dependence; Z85.46 Personal history of malignant neoplasm of prostate; Z88.0 Allergy status to penicillin; Z82.49 Family history of ischemic heart disease and other diseases of the circulatory system
CPT/HCPCS: 36415; 93005; 80053; 83605; 83690; 85025; 85610; 85730; 81001; 74177; 96374; 99284; J1885; Q9967

== ENCOUNTER → 2021-09-01 | Outpatient (CLI) | payer MEDICARE ==
--- NOTE | 2021-09-01 11:36 | FL ---
EXAMINATION TYPE: FL barium swallow DATE OF EXAM: 09/01/2021 COMPARISON: None HISTORY: Dysphagia TECHNIQUE: Double air contrast technique is utilized to evaluate the esophagus. Fluoroscopy real-time observation and overhead radiographs were obtained. FINDINGS: Fluoroscopy time: 28 seconds. Images: 83. Esophagus dilates to normal caliber has a normal contour to the gastroesophageal junction. Gastroesop hageal junction opens to normal caliber. No suspicious intraluminal or extramural defects are evident . There are a few tertiary and secondary contractions evident during the examination compatible with mild presbyesophagus. IMPRESSION: 1. Mild presbyesophagus. 2. Esophagram otherwise appears unremarkable.
== END | disposition home or self-care (01) ==
LOC: RADUSWWP 07:50
PROVIDERS: ATTEND Otolaryngology
DX: K22.89 Other specified disease of esophagus (principal)
CPT/HCPCS: 74220

== ENCOUNTER → 2021-11-09 | Outpatient (CLI) | payer MEDICARE ==
--- NOTE | 2021-11-10 12:32 | MR ---
EXAMINATION TYPE: MR brain/cspine wo/w DATE OF EXAM: 11/09/2021 COMPARISON: MR cervical spine 07/30/2015, CT brain 07/27/2015 HISTORY: horners syndrome TECHNIQUE: Multiplanar, multisequence images of the brain and brainstem, cervical spine is performed without and with IV contrast, utilizing 8.5ml mL intravenous Gadavist . 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 There is no extra-axial fluid collection. Confluent and scattered periventric ular, pericallosal, subcortical hyperintensities are present on inversion recovery T2-weighted sequen alfredo, some localized gliotic change suspected at the left parietal lobe towards the convexity, some fo estephania encephalomalacia in the right frontal lobe is stable. The ventricular system and cisternal spaces are stable in size and appearance. Lacunar infarct is stable within the region of the posterior limb of the internal capsule or thalamus on the right. The brain volume is age appropriate, there is cor tical atrophy is noted on previous exam. Probable arachnoid cyst present in the middle cranial fossa anteriorly in the left is stable. It measures approximately 4.4 x 1.6 x 1.9 cm, posterior fossa midli ne cystic areas are also stable. Craniotomy change is noted over the left frontoparietal and posterio r left temporal calvarium. Midline structures demonstrate normal morphology. The craniocervical junction appears within normal limits. Post contrast images demonstrate no abnormal enhancement. The dural venous sinuses appear pa tent. The visualized sinuses are remarkable for inflammatory change in the ethmoid air cells and the globes are asymmetric in the appearance of the left, stable. IMPRESSION: Postop changes. Age-related atrophy and probable chronic small vessel ischemia. Sinus dis ease. Additional findings above. Cervical spine MRI: Cervical vertebral bodies show preserved height and alignment. There is spondylos is with loss of disc height especially at C5-6, C6-7, there is associated endplate discogenic marrow signal change. No significant spinal stenosis. Cervical cord signal is normal. C6-7 just posterior extension of endplate disc complex causing anterior mass effect on the thecal sac . Uncovertebral joint hypertrophy results in bilateral foraminal encroachment. C5-6: Left posterior paracentral extension of endplate disc complex causes anterior mass effect on th e thecal sac. There is some uncovertebral joint hypertrophy causing some foraminal encroachment to le sser extent. C4-5: Small posterior disc bulge causes slight anterior mass effect on the thecal sac. No significant foraminal encroachment. Remaining levels are essentially normal. No abnormal enhancement following contrast administration. IMPRESSION: Degenerative disc disease, multilevel foraminal encroachment.
== END | disposition home or self-care (01) ==
LOC: RADMRIMAIN 07:10
PROVIDERS: ATTEND Ophthalmology Ophthalmic Plastic and Reconstructive Surgery
DX: G90.2 Horner's syndrome (principal); M47.812 Spondylosis without myelopathy or radiculopathy, cervical region; M50.222 Other cervical disc displacement at C5-C6 level
CPT/HCPCS: 70553; 72156; A9585

== ENCOUNTER → 2021-12-03 | Outpatient (CLI) | payer MEDICARE ==
--- NOTE | 2021-12-03 14:19 | MR ---
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 There is arterial flow in the internal carotid arteries bilaterally. There is arterial flow in the ve rtebral basilar artery system. There is wide patency of the anterior middle and posterior cerebral arteries bilaterally. There is no mass effect. No evidence of intracranial aneurysm or neovascularity. IMPRESSION: Normal MR angiogram of the brain.
== END | disposition home or self-care (01) ==
LOC: RADMRIMAIN 11-26 14:11
PROVIDERS: ATTEND Ophthalmology Ophthalmic Plastic and Reconstructive Surgery
DX: G90.2 Horner's syndrome (principal)
CPT/HCPCS: 70546; A9585

== ENCOUNTER → 2022-04-05 | Outpatient (CLI) | payer MEDICARE ==
[2022-04-05 16:25] LABS: Appearance,Urine Clear (Clear); Bilirubin,Urine Negative (Negative); Blood,Urine Negative (Negative); Color,Urine Yellow (Yellow); Ketones,Urine Negative (Negative); Nitrite,Urine Negative (Negative); Specific Gravity,Urine 1.016 (1.001-1.030); Urobilinogen,Urine 0.2 (0.2,1.0)
[2022-04-05 18:07] LABS: African American GFR (CKD) 102.7 (60.0-200.0); Albumin 4.9 g/dL (3.8-4.9); Albumin/Globulin Ratio 1.96 (1.60-3.17); Anion Gap 10.6 mmol/L (10.00-18.00); BUN/Creat Ratio 19.38 Ratio (12.00-20.00); Basophils # (A) 0.05 X 10*3/uL (0.00-0.10); Blood Urea Nitrogen 15.5 mg/dL (9.0-27.0); Carbon Dioxide 27.4 mmol/L (20.0-27.5); Eosinophils # (A) 0.14 X 10*3/uL (0.04-0.35); Eosinophils % (A) 2.8 %; Globulin 2.5 g/dL (1.6-3.3); HCT 41.3 % (39.6-50.0); Immature Grans, Automated 0.2 %; Lymphocytes % (A) 28.4 %; MCH 31.3 pg (27.0-32.0); MCHC 31.5 g/dL (32.0-37.0); MCV 99.3 fL (80.0-97.0); Monocytes # (A) 0.55 X 10*3/uL (0.20-1.00); Monocytes % (A) 11.2 %; NRBC Per 100 WBC 0 /100 WBCS (0.0-0.0); Neutrophils # (A) 2.78 X 10*3/uL (1.80-7.70); Neutrophils % (A) 56.4 %; Non-African American GFR(CKD) 88.6 (60.0-200.0); Platelet Count 170 X 10*3/uL (140-440); Potassium 4.9 mmol/L (3.5-5.5); RBC 4.16 X 10*6/uL (4.40-5.60); RDW 13.1 % (11.5-14.5); Total Bilirubin 0.4 mg/dL (0.30-1.20); Total Protein 7.4 g/dL (6.2-8.2); WBC 4.93 X 10*3/uL (4.50-10.00)
== END | disposition home or self-care (01) ==
LOC: LABPAT 10:26
PROVIDERS: ATTEND Urology
DX: Z01.812 Encounter for preprocedural laboratory examination (principal); N39.3 Stress incontinence (female) (male)
CPT/HCPCS: 80053; 81003; 85025; 87086

== ENCOUNTER 2022-04-12 06:03 | Day surgery (SDC) | payer MEDICARE ==
--- NOTE | 2022-04-11 11:16 | P.GSHP ---
History of Present Illness H&P Date: 04/11/22 71 yo male with a history of prostate ancer identified and turp. 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 He wears 5-6 ppd and has failed exercise management and imipramine. He wishes something done for his amandeep. He comes for a tandem gu sphincter to control this problem. The risks, complications and alternatives have been discussed. Past Medical History Past Medical History: Asthma, Cancer, Eye Disorder Additional Past Medical History / Comment(s): URINARY INCONTINENT, USES DEPENDS. Prostate CA dx Aug 2020 (NO SURGERY),GLAUCOMA, and previous history of shoulder dislocation, bronchial asthma. HEAD INJURY MANY YEARS AGO WITH TEMPORY PARALYSIS ON LEFT AND HEADACHES, ALL RESOLVED. 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 Lifelong nonsmoker. No significant alcohol use. Relates been for 44 years and has had no other sexual partners other than his . No experience. No travel history. No animal exposures as of late. Does relate that his and brother and [id number] went on a trip to [place] and no one else is ill but him. Smoking Status: Never smoker Past Alcohol Use History: None Reported Additional Past Alcohol Use History / Comment(s): smoked only as teen Past Drug Use History: None Reported - Past Family History Mother Family Medical History: Cancer Additional Family Medical History / Comment(s): Mother at the age of 56 from leukemia. Father Family Medical History: Coronary Artery Disease (CAD) (Father at age of 81 from CAD), Myocardial Infarction (MA) Additional Family Medical History / Comment(s): Father at age of 81 from CAD. Brother(s) Family Medical History: No Reported History (Patient has 3 brothers no major medical problems) Additional Family Medical History / Comment(s): Patient has 3 brothers with no major medical problems. Sister(s) Family Medical History: No Reported History (Patient has 3 sisters no major medical problems.) Additional Family Medical History / Comment(s): Patient has 3 sisters with no major medical problems. Daughter(s) Family Medical History: No Reported History (One daughter no major medical problems.) Additional Family Medical History / Comment(s): Patient has one daughter with no major medical problems. Son(s) Family Medical History: No Reported History (2 sons no major medical problems) Additional Family Medical History / Comment(s): Patient has 2 sons with no major medical problems. Medications and Allergies Home Medications Medication Instructions Recorded Confirmed Type Biotin 5,000 mcg PO DAILY 11/21/18 04/11/22 History Cholecalciferol [Vitamin D3] 2,000 unit PO DAILY 11/21/18 04/11/22 History Aspirin 325 mg PO DAILY 09/28/20 04/11/22 History Multivit-Min/FA/Lycopen/Lutein 1 each PO DAILY 09/28/20 04/11/22 History [Centrum Silver Men Tablet] Triprolidine/Pseudoephedrine 1 each PO DAILY PRN 09/29/20 04/11/22 History [Aprodine Tablet] Albuterol Inhaler [Ventolin Hfa 1 puff INHALATION DIRECTED PRN 04/11/22 04/11/22 History Inhaler] Latanoprost/Pf [Latanoprost 0.005% 1 drop BOTH EYES HS 04/11/22 04/11/22 History Eye Drop] Allergies Allergy/AdvReac Type Severity Reaction Status Date / Time Penicillins Allergy Itching Verified 04/11/22 08:19 sawdust Allergy Unknown Uncoded 04/11/22 08:19
[~2022-04-12 06:03] MED LIST changes: +AMPICILLIN 1,000 MG in SODIUM CHLORIDE 0.9% 50 ML IVPB PRN; +GENTAMICIN 110 MG in SODIUM CHLORIDE 0.9% 100 ML IVPB PRN; -HYDROmorphone 0.5 MG/0.5 ML SYRINGE IVP PRN
[2022-04-12] MEDS ORDERED: HYDROmorphone 0.5 MG/0.5 ML SYRINGE IVP PRN (07:00)
[2022-04-12] MEDS ORDERED: PROPOFOL 10 MG/ML 20 ML VIAL IV ONE (07:24)
[2022-04-12] MEDS ORDERED: PHENYLEPHRINE-0.9% NACL SYG 1,000 MCG/10 ML SYRINGE ONE (07:24)
[2022-04-12] MEDS ORDERED: fentaNYL (PF) 50 MCG/ML 2 ML AMP ONE (07:24)
[2022-04-12] MEDS ORDERED: LIDOCAINE 2% INJ 20 MG/ML (2 ML VIAL) ONE (07:24)
[2022-04-12] MEDS ORDERED: MIDAZOLAM 2 MG/2 ML VIAL ONE (07:24)
[2022-04-12] MEDS ORDERED: ePHEDrine 50 MG/ML 1 ML VIAL ONE (07:24)
[2022-04-12] MEDS ORDERED: KETOROLAC 15 MG/ML 1 ML VIAL ONE (07:24)
[2022-04-12] MEDS ORDERED: GENTAMICIN 80 MG in SODIUM CHLORIDE 0.9% 200 ML IRRIGATION ONE (08:05)
[2022-04-12 09:13] VITALS: TEMP 97.3
--- NOTE | 2022-04-12 09:18 | P.OP ---
Date of Procedure: 04/12/22 Preoperative Diagnosis: Stress urinary incontinence, prostate cancer status post radiation therapy Postoperative Diagnosis: Same Procedure(s) Performed: Insertion of AMS artificial urinary sphincter series 800 with 2/ 3.5 cm cuffs, 61-70 cm reservoir, cystoscopy Anesthesia: ALEXIS Surgeon: Ishmael Harley Leader Tier #1: Braeden Muro Estimated Blood Loss (ml): 25 Pathology: none sent Condition: stable Disposition: PACU Indications for Procedure: The patient is 72. He is status post TURP followed by radiation therapy for prostate cancer. He developed a frozen sphincter and a 6 pads stress urinary incontinence. He failed exercise management and imipramine. He come for a sphincter. This complications alternatives and referrals have been discussed Description of Procedure: The patient is brought to the operating suite he is given a general anesthetic. He is prepped and draped sterilely. The bladder strain with a 16-Divehi red rubber catheter which remains in place. A midline scrotal incision is made. I dissect down to the urethra. Appropriate retraction with the ring retractor is made. Urethra is identified and I dissect around the urethra. I followed the urethra proximally as far as I can. I I dissect around the urethra completely in [address] sphincters. He was controlled electrocautery. I passed the sizer around the urethra and in each space identified a 3.5 cm circumference. I then created a tunnel up into the external inguinal ring. I make a counter incision over the external inguinal ring. I then pass into the pre-vesicle space and place the 61-70 cm pressure balloon reservoir. It is filled with 25 mL of saline. I then closed the defect around the external ring with 2-0 Vicryl. I passed the tubing through the inguinal canal down into the scrotum. I then created a separate space for the pump in the right hemiscrotum. I then connected the pump to the sphincters with Y connects. I then connected the pump to the reservoir with straight connects. I then pump the sphincter and it opens up the urethra nicely. Cystoscopically. There is no evidence of injury to the urethra cystoscopically. I then irrigate thoroughly. I closed the scrotum with 2 layers with 3-0 chromic and then a 4-0 Vicryl. I closed the suprapubic incision with a 3-0 chromic and a 4-0 Monocryl. The wound is dressed the patient is awakened and returned recovery room good condition. Blood loss is approximately 25 mL. He'll be discharged home upon recovery.
[2022-04-12 09:46] VITALS: RESP 16
[2022-04-12] MEDS ORDERED: HYDROcodone/APAP 5-325MG 1 EACH TAB ONE (10:10)
[2022-04-12] MEDS ORDERED: HYDROcodone/APAP 5-325MG 1 EACH TAB PO ONE (10:13)
[2022-04-12 10:32] VITALS: BP 143/83; PULSE 81
== END 2022-04-12 10:50 | disposition home or self-care (01) ==
LOC: OR 06:03
PROVIDERS: ATTEND Urology
DX: N39.3 Stress incontinence (female) (male) (principal); J45.909 Unspecified asthma, uncomplicated; H40.9 Unspecified glaucoma; Z85.46 Personal history of malignant neoplasm of prostate; Z92.3 Personal history of irradiation; Z79.899 Other long term (current) drug therapy; Z79.82 Long term (current) use of aspirin; Z88.0 Allergy status to penicillin; Z88.8 Allergy status to other drugs, medicaments and biological substances; Z90.89 Acquired absence of other organs; Z98.890 Other specified postprocedural states; Z98.42 Cataract extraction status, left eye; Z96.651 Presence of right artificial knee joint; Z87.891 Personal history of nicotine dependence; Z80.6 Family history of leukemia; Z82.1 Family history of blindness and visual loss
CPT/HCPCS: 53445; J2250; J1580 ×2; J1100; J2405; J3010; J0290; J1885; J2370; J2704; J2001

== ENCOUNTER → 2022-11-06 | Outpatient (CLI) | payer MEDICARE ==
--- NOTE | 2022-11-06 10:28 | FL ---
EXAMINATION TYPE: FL barium swallow DATE OF EXAM: 11/06/2022 9:38 AM COMPARISON: Esophagram 09/01/2021. CLINICAL INDICATION:Male, 72 years old with history of R13.10 DYSPHAGIA; PHH, TECHNIQUE: The procedure was explained and patient history elicited. All patient questions were ans wered prior to start of procedure. Multiple spot fluoroscopic images of the esophagus were obtained a fter the oral ingestion of effervescent crystals and liquid barium as the contrast agent. Fluoroscopic time: 21 seconds Fluoroscopic images: 142 FINDINGS: The esophagus demonstrates normal primary and secondary peristalsis. Few tertiary contractions. The esophageal mucosa is smooth without evidence of focal stricture, ulceration, or abnormal outpouching. No gastroesophageal reflux disease was identified. Significant contrast retention within the vallec sharon and piriform recesses bilaterally during the course of the exam. IMPRESSION: 1. Significant contrast retention within the vallecula and piriform recesses bilaterally during the e xam. 2. Mild presbyesophagus.
== END | disposition home or self-care (01) ==
LOC: RADUSWWP 08:51
PROVIDERS: ATTEND Otolaryngology
DX: K22.89 Other specified disease of esophagus (principal); R13.10 Dysphagia, unspecified
CPT/HCPCS: 74220